=== PATIENT | male | born 1970 | race Two or more races ===

== ENCOUNTER 2018-03-01 08:12 | Emergency (ER) | payer OTHER ==
[~2018-03-01] VITALS: Ht 180.3 cm; Wt 148.8 kg
[2018-03-01] MEDS ORDERED: IBUPROFEN800 MG PO (08:55)
[2018-03-01] MEDS ORDERED: AMOX-CLAV 875-1 EACH PO (08:55)
[2018-03-01] MEDS ORDERED: MUPIROCIN22 GM TOP (08:55)
== END 2018-03-01 09:37 | disposition home or self-care (01) ==
LOC: ER 08:12
DX: R60.0 Localized edema (principal)

== ENCOUNTER 2018-03-03 10:22 | Emergency (ER) | payer OTHER ==
[~2018-03-03] VITALS: Ht 180.3 cm; Wt 148.8 kg
[~2018-03-03 10:22] MED LIST: AMOX-CLAV 875-1 EACH PO; IBUPROFEN800 MG PO; MUPIROCIN22 GM TOP
[2018-03-03] MEDS ORDERED: MEDROLPACK PO (15:20)
[2018-03-03] MEDS ORDERED: CLEOCIN HCL300 MG PO (15:20)
== END 2018-03-03 15:43 | disposition home or self-care (01) ==
LOC: ER 10:22
DX: H92.01 Otalgia, right ear (principal)

== ENCOUNTER 2019-02-14 14:05 | Emergency (ER) | payer OTHER ==
[~2019-02-14] VITALS: Ht 180.3 cm; Wt 147.4 kg
[~2019-02-14 14:05] MED LIST changes: +CLEOCIN HCL300 MG PO; +MEDROLPACK PO
== END 2019-02-14 18:06 | disposition home or self-care (01) ==
LOC: ER 14:05
DX: R51 Headache (principal)

== ENCOUNTER 2019-10-05 18:41 | Emergency (ER) | payer OTHER ==
[~2019-10-05] VITALS: Ht 180.3 cm; Wt 145.1 kg
== END 2019-10-05 21:24 | disposition home or self-care (01) ==
LOC: ER 18:41
DX: U07.1 COVID-19 (principal); B34.9 Viral infection, unspecified; R07.0 Pain in throat; R51 Headache

== ENCOUNTER 2020-11-10 15:37 | Emergency (ER) | payer OTHER ==
[~2020-11-10] VITALS: Ht 180.3 cm; Wt 117.9 kg
== END 2020-11-10 17:42 | disposition home or self-care (01) ==
LOC: ER 15:37
DX: L03.116 Cellulitis of left lower limb (principal)

== ENCOUNTER 2022-02-19 12:45 | Emergency (ER) | payer OTHER ==
[~2022-02-19] VITALS: Ht 180.3 cm; Wt 149.7 kg
[2022-02-19] MEDS ORDERED: AMOX-CLAV 875-1 EACH PO (15:42)
== END 2022-02-19 15:53 | disposition home or self-care (01) ==
LOC: ER 12:45
DX: L03.116 Cellulitis of left lower limb (principal)

== ENCOUNTER 2023-08-26 12:00 | Emergency (ER) | payer OTHER ==
[~2023-08-26] VITALS: Ht 180.3 cm; Wt 138.3 kg
[~2023-08-26 12:00] MED LIST changes: +DICLOFENAC POTA50 MG PO
[2023-08-26] MEDS ORDERED: KETOROLAC TROMETHAMINE 60 MG VIAL IM STA (13:34)
[2023-08-26] MEDS ORDERED: KETOROLAC TROMETHAMINE 60 MG VIAL IM ONE (13:38)
== END 2023-08-26 16:07 | disposition home or self-care (01) ==
LOC: ER 12:00
DX: S80.01XA Contusion of right knee, initial encounter (principal); X58.XXXA Exposure to other specified factors, initial encounter; Y93.9 Activity, unspecified; Y92.89 Other specified places as the place of occurrence of the external cause; Y99.9 Unspecified external cause status

== ENCOUNTER 2024-02-12 19:25 | Inpatient (IN) | payer OTHER ==
[~2024-02-12] VITALS: Ht 180.3 cm; Wt 140.6 kg
--- NOTE | 2024-02-12 19:33 | NUR ---
PTE ALERTA Y ORIENTADO X3, REFIERE COMENZO CON WILLIAM CELLULITIS EN PIERNA IZQ DESDE MARTHA. SE OBSERVA AREA ENROJECIDA. SE JANEY SV Y SE UBICA
[2024-02-12] MEDS ORDERED: ACETAMINOPHEN 500 MG GEL..CAP PO ONE (19:37)
--- NOTE | 2024-02-12 19:39 | NUR ---
PTE CON TEMP 102.5 SE JORDEN TYLENOL.
[2024-02-12] MEDS ORDERED: VANCOMYCIN HCL 1,000 MG VIAL ONE (19:52)
[2024-02-12] MEDS ORDERED: KETOROLAC TROMETHAMINE 60 MG VIAL IM ONE (19:52)
[2024-02-12] MEDS ORDERED: VANCOMYCIN HCL 1,000 MG VIAL IV ONE (20:00)
[2024-02-12] MEDS ORDERED: KETOROLAC TROMETHAMINE 30 MG VIAL IV ONE (20:00)
--- NOTE | 2024-02-12 20:37 | NUR ---
PTE ALERTA Y ORIENTADO X3 SE LE ORIENTA SOBRE TX MEDICO LO CUAL REFIERE ENTENDER Y ACEPTAR SE LE REALZIAN [facility] DE [facility] Y SE LE ADMINISTRA MEDICAMETNOS NURIA ORDEN MEDICA
[2024-02-12 20:47] LABS: ERYTHROCYTE SEDIMENTATION RATE 15 mm/hr; HEMATOCRIT 43.4 % (39.0-48.0); HEMOGLOBIN 14.4 g/dL (13-16.00); MEAN CELL VOLUME 92.5 fL (80.0-100.00); MEAN CORPUSCULAR HEMOGLOBIN 30.7 pg (27.00-32.0); MEAN CORPUSCULAR HGB CONC 33.1 g/dl (32.0-36.0); PLATELET COUNT 269 K/uL (150-450); RED CELL DISTRIBUTION WIDTH 13.1 % (11.5-14.5)
[2024-02-12 21:58] LABS: ALBUMIN 3.9 gm/dL (3.4-5.0); BILIRUBIN TOTAL 1.07 mg/dL (0.3-1.2); CALCIUM 9.1 mg/dL (8.5-10.1); CREATININE SERUM 1.11 mg/dL (0.70-1.30); GFR 68.78; GLOBULINA 4.4 G/DL (2.4-3.5); POTASSIUM 4.06 mEq/L (3.5-5.1); TOTAL PROTEIN 8.3 gm/dL (6.4-8.2)
[2024-02-12 22:04] LABS: C-REACTIVE PROTEIN 1.08 MG/DL (0.00-0.29)
[2024-02-12] MEDS ORDERED: CEFTRIAXONE SODIUM 2,000 MG in 0.9 % SODIUM CHLORIDE 100 ML IV SCH (22:44)
[2024-02-12] MEDS ORDERED: 0.9 % SODIUM CHLORIDE 1,000 ML IV SCH (22:45)
[2024-02-12] MEDS ORDERED: ONDANSETRON HCL 4 MG in 0.9 % SODIUM CHLORIDE 50 ML IV PRN (22:45)
[2024-02-12] MEDS ORDERED: KETOROLAC TROMETHAMINE 15 MG VIAL IU ONE (22:45)
[2024-02-12] MEDS ORDERED: ACETAMINOPHEN 500 MG GEL..CAP PO PRN (22:45)
[2024-02-13] MEDS ORDERED: CEFTRIAXONE SODIUM 2,000 MG VIAL ONE (00:16)
[2024-02-13] MEDS ORDERED: KETOROLAC TROMETHAMINE 60 MG VIAL IM ONE (00:16)
[2024-02-13 01:39] LABS: INR 1.06; PARTIAL THROMBOPLASTIN TIME 28.2 SECONDS (22.0-34.0); PROTHROMBIN TIME 11.5 SECONDS (9.0-11.5)
[2024-02-13 05:39] LABS: URINE APPEARANCE Cloudy; URINE BILIRRUBIN Small (NEGATIVE); URINE BLOOD Small; URINE COLOR Orange; URINE GLUCOSE Negative (NEGATIVE); URINE KETONE Negative (NEGATIVE); URINE LEUKOCYTE Trace; URINE NITRATE Negative; URINE PROTEIN 30 (NEGATIVE)
[2024-02-13 05:43] LABS: URINE CAST 6.48 uL (0.0-1.40); URINE EPITHELIAL CELLS 51.9 uL (0.0-38.8); URINE RBC 261.4 uL (0.0-20.8); URINE WBC 55.7 uL (0.0-23.2)
[2024-02-13 05:52] LABS: URINE MUCUS HEAVY
[2024-02-13] MEDS ORDERED: FAMOTIDINE/PF 20 MG in 0.9 % SODIUM CHLORIDE 8 ML IV PUSH SCH (09:00)
[2024-02-13] MEDS ORDERED: ENOXAPARIN SODIUM 40 MG/0.4 ML SYRINGE SUBCUTANEO SCH (09:00)
[2024-02-13 09:28] VITALS: BP 129/77; O2SAT 99
[2024-02-13 16:18] VITALS: BP 139/79; O2SAT 99
[2024-02-13] MEDS ORDERED: LINEZOLID IN DEXTROSE 5% 300 ML IV SCH (17:00)
[2024-02-14 03:02] VITALS: BP 154/63; O2SAT 100
[2024-02-14] MEDS ORDERED: TERBINAFINE HCL TOP SCH (09:00)
[2024-02-14] MEDS ORDERED: LOSARTAN POTASSIUM 50 MG TABLET PO SCH (09:00)
[2024-02-14 10:06] VITALS: BP 135/83
[2024-02-14 17:24] VITALS: BP 135/67; O2SAT 96
[2024-02-15 01:18] VITALS: BP 136/63
[2024-02-15 08:59] VITALS: BP 142/72; O2SAT 95
[2024-02-15 16:38] VITALS: BP 124/74; O2SAT 99
[2024-02-15] MEDS ORDERED: FAMOtidine 20 MG TABLET PO SCH (21:00)
[2024-02-16 00:46] VITALS: BP 132/76; O2SAT 98
[2024-02-16 08:52] VITALS: BP 136/87; O2SAT 100
[2024-02-16 14:39] LABS: HEMOGLOBIN 13.1 g/dL (13-16.00); MEAN CELL VOLUME 93.4 fL (80.0-100.00); MEAN CORPUSCULAR HEMOGLOBIN 30.7 pg (27.00-32.0); MEAN CORPUSCULAR HGB CONC 32.8 g/dl (32.0-36.0); PLATELET COUNT 257 K/uL (150-450); RED BLOOD COUNT 4.28 M/uL (4.00-6.00); RED CELL DISTRIBUTION WIDTH 12.5 % (11.5-14.5)
[2024-02-16 15:12] LABS: CALCIUM 9.2 mg/dL (8.5-10.1); CREATININE SERUM 1.03 mg/dL (0.70-1.30); GFR 74.98; POTASSIUM 4.57 mEq/L (3.5-5.1)
[2024-02-16] MEDS ORDERED: LINEZOLID 600 MG TABLET PO SCH (17:00)
[2024-02-16 17:17] VITALS: BP 160/85; O2SAT 97
== END 2024-02-16 17:51 | disposition home or self-care (01) | DRG 872 ==
LOC: ER 19:27 → MEDI 23:59
PROVIDERS: General Practice; ADMIT Student in an Organized Health Care Education/Training Program; ATTEND Student in an Organized Health Care Education/Training Program
PROC: B54DZZZ Ultrasonography of Bilateral Lower Extremity Veins (ICD-10-PCS; principal; 2024-02-13)
DX: A41.9 Sepsis, unspecified organism (principal); L03.116 Cellulitis of left lower limb; I87.2 Venous insufficiency (chronic) (peripheral)

== ENCOUNTER 2024-06-20 12:08 | Emergency (ER) | payer OTHER ==
[~2024-06-20] VITALS: Ht 180.3 cm; Wt 145.1 kg
[2024-06-20] MEDS ORDERED: KETOROLAC TROMETHAMINE 60 MG VIAL IM ONE ×2 (15:00→15:09)
[2024-06-20] MEDS ORDERED: ORPHENADRINE CITRATE 30 MG/ML AMPUL IM ONE (15:00)
[2024-06-20] MEDS ORDERED: ORPHENADRINE CITRATE 30 MG/ML AMPUL ONE (15:10)
== END 2024-06-20 17:09 | disposition home or self-care (01) ==
LOC: ER 12:08
DX: M77.8 Other enthesopathies, not elsewhere classified (principal); R60.0 Localized edema